=== PATIENT | male | born 1940 | race Caucasian/White ===

== ENCOUNTER → 2016-09-14 | Outpatient (CLI) | payer MEDICARE ==
[~2016-09-14] MED LIST: APIX5TAB PO; ASPI-621 PO; ASPI325T4 PO; DILT300C PO; FURO40TA6 PO; ISOS30TA8 PO; MEGA MEN VITAMIN PO; METF500T4 PO; METO-93 PO; POTA20TA14 PO; RIVA20TA PO; SIMV80TA3 PO; TRIA1CAP3 PO
== END | disposition home or self-care (01) ==
LOC: CFH 14:05 → EDSTATUS 14:30
PROVIDERS: ATTEND Internal Medicine
DX: J43.9 Emphysema, unspecified (principal); I25.10 Atherosclerotic heart disease of native coronary artery without angina pectoris; J47.9 Bronchiectasis, uncomplicated; J98.4 Other disorders of lung; I51.7 Cardiomegaly; R59.1 Generalized enlarged lymph nodes
CPT/HCPCS: 71250

== ENCOUNTER → 2016-09-22 | Outpatient (CLI) | payer MEDICARE | END | disposition home or self-care (01) | LOC: CARD 12:01 | PROVIDERS: ATTEND Internal Medicine | DX: J44.9 Chronic obstructive pulmonary disease, unspecified (principal) | CPT/HCPCS: 94060; 94726; 94729 ==

== ENCOUNTER → 2017-01-12 | Outpatient (CLI) | payer MEDICARE ==
[~2017-01-12] MED LIST changes: +ASPI325T17 PO; -ASPI325T4 PO
== END | disposition home or self-care (01) ==
LOC: CFH 13:00
PROVIDERS: ATTEND Physician Assistant
DX: I08.3 Combined rheumatic disorders of mitral, aortic and tricuspid valves (principal); I10 Essential (primary) hypertension; I48.91 Unspecified atrial fibrillation; E78.5 Hyperlipidemia, unspecified; Z85.828 Personal history of other malignant neoplasm of skin; Z87.891 Personal history of nicotine dependence
CPT/HCPCS: 93306

== ENCOUNTER 2017-12-01 17:30 | Inpatient (IN) | payer MEDICARE ==
[~2017-12-01] VITALS: Ht 182.9 cm; Wt 102.8 kg
[~2017-12-01 17:30] MED LIST changes: -METF500T4 PO; +METF500T5 PO; -SIMV80TA3 PO; +SIMV80TA7 PO
[2017-12-01] MEDS ORDERED: ALBUTEROL/IPRATROPIUM 2.5MG/0.5MG, 3 ML ONE (17:50)
[2017-12-01] MEDS ORDERED: DILT180C59 PO (18:00)
[2017-12-01] MEDS ORDERED: RIVA15TA PO (18:00)
[2017-12-01] MEDS ORDERED: PROP1DRO6 OP (18:00)
[2017-12-01] MEDS ORDERED: PRESSERVISION (18:00)
[2017-12-01] MEDS ORDERED: SODIUM CHLORIDE (18:00)
[2017-12-01] MEDS ORDERED: SODIUM CHLORIDE FLUSH 10ML SYR IVF ONE (18:30)
[2017-12-01 18:35] LABS: BASOPHILS # (AUTO) 0.03 x10^3/uL (0-0.1); BASOPHILS % (AUTO) 0 % (0-1); EOSINOPHILS # (AUTO) 0.01 x10^3/uL (0-0.4); EOSINOPHILS % (AUTO) 0 % (1-7); LYMPHOCYTES # (AUTO) 0.25 x10^3/uL (1-3.4); LYMPHOCYTES % (AUTO) 3 % (22-44); MD NO; MEAN CORPUSCULAR HEMOGLOBIN 28.7 pg (27.5-34.5); MEAN CORPUSCULAR HGB CONC 32.6 g/dL (33.2-36.2); MEAN PLATELET VOLUME 8.6 fL (7.4-10.4); MONOCYTES # (AUTO) 0.34 x10^3/uL (0.2-0.8); MONOCYTES % (AUTO) 4 % (2-9); NEUTROPHILS # (AUTO) 9.25 x10^3/uL (1.8-6.8); NEUTROPHILS % (AUTO) 94 % (42-75); PLATELET COUNT 215 x10^3/uL (130-400); RED BLOOD COUNT 3.62 x10^6/uL (4.38-5.82); RED CELL DISTRIBUTION WIDTH 17.1 % (9.4-14.8)
[2017-12-01 18:40] LABS: INTERNATIONAL NORMALIZED RATIO 1.3 (0.93-1.1); PROTHROMBIN TIME 13.4 Seconds (9.6-11.5)
[2017-12-01 18:42] LABS: ANION GAP 14 mmol/L (5-15); CALCIUM 8.8 mg/dL (8.5-10.1); CHLORIDE 104 mmol/L (98-107)
[2017-12-01 18:47] LABS: ALANINE AMINOTRANSFERASE 12 U/L (12-78); ALKALINE PHOSPHATASE 124 U/L (45-117); BILIRUBIN,TOTAL 0.8 mg/dL (0.2-1.0); CREATININE 4.39 mg/dL (0.7-1.3); TOTAL PROTEIN 7.2 g/dL (6.4-8.2); TROPONIN I < 0.015 ng/mL (0.000-0.045)
[2017-12-01] MEDS ORDERED: SODIUM CHLORIDE 0.9% 1,000ML IVBOLUS ONE (19:30)
[2017-12-01] MEDS ORDERED: SODIUM CHLORIDE FLUSH 10ML SYR IVF PRN (19:30)
[2017-12-01] MEDS ORDERED: ONDANSETRON 2MG/ML, 2ML IVPush PRN (20:00)
[2017-12-01] MEDS ORDERED: ACETAMINOPHEN 325 MG TABLET PO PRN (20:00)
[2017-12-01] MEDS ORDERED: POLYETHYLENE GLYCOL 17 GM PACKET PO PRN (20:00)
[2017-12-01 20:14] LABS: % IRON SATURATION 14 % (20-55); IRON LEVEL 42 mcg/dL (65-175); TOTAL IRON BINDING CAPACITY 292 mcg/dL (250-450)
[2017-12-01 20:53] VITALS: BP 92/61
[2017-12-01] MEDS ORDERED: HEPARIN 5,000 UNITS/ML, 1ML SQ SCH (21:00)
[2017-12-01] MEDS: CEFTRIAXONE 2 GM in SODIUM CHLORIDE 0.9% 50 ML IV SCH (23:31)
[2017-12-01] MEDS: SODIUM CHLORIDE 0.9% 1,000 ML IV SCH (23:31)
[2017-12-02 00:54] VITALS: BP 100/72
[2017-12-02] MEDS: ASPIRIN 81 MG TABLET EC PO SCH (05:20)
[2017-12-02 05:30] LABS: BASOPHILS # (AUTO) 0.02 x10^3/uL (0-0.1); BASOPHILS % (AUTO) 0 % (0-1); EOSINOPHILS # (AUTO) 0.02 x10^3/uL (0-0.4); EOSINOPHILS % (AUTO) 0 % (1-7); LYMPHOCYTES # (AUTO) 0.39 x10^3/uL (1-3.4); LYMPHOCYTES % (AUTO) 5 % (22-44); MD NO; MEAN CORPUSCULAR HEMOGLOBIN 28.9 pg (27.5-34.5); MEAN CORPUSCULAR HGB CONC 32.7 g/dL (33.2-36.2); MEAN CORPUSCULAR VOLUME 88.4 fL (81-97); MEAN PLATELET VOLUME 8.5 fL (7.4-10.4); MONOCYTES % (AUTO) 8 % (2-9); NEUTROPHILS # (AUTO) 6.31 x10^3/uL (1.8-6.8); NEUTROPHILS % (AUTO) 86 % (42-75); PLATELET COUNT 163 x10^3/uL (130-400); RED BLOOD COUNT 3.57 x10^6/uL (4.38-5.82); RED CELL DISTRIBUTION WIDTH 17.3 % (9.4-14.8)
[2017-12-02 05:41] LABS: ALANINE AMINOTRANSFERASE 11 U/L (12-78); ALBUMIN 2.8 g/dL (3.4-5.0); ANION GAP 9 mmol/L (5-15); CALCIUM 8.6 mg/dL (8.5-10.1); CHLORIDE 106 mmol/L (98-107)
[2017-12-02 05:52] LABS: ALKALINE PHOSPHATASE 115 U/L (45-117); BILIRUBIN,TOTAL 0.6 mg/dL (0.2-1.0); CREATININE 4.27 mg/dL (0.7-1.3); TOTAL PROTEIN 6.8 g/dL (6.4-8.2)
[2017-12-02 08:09] VITALS: BP 99/66
[2017-12-02] MEDS: RIVAROXABAN 15 MG TABLET PO SCH (08:13)
[2017-12-02] MEDS: SODIUM CHLORIDE 0.9% 1,000 ML IV SCH (11:14)
[2017-12-02 12:18] LABS: MICROSCOPIC AUTO
[2017-12-02 12:21] LABS: CHLORIDE,URINE RANDOM 45 mmol/L; CULTURE INDICATED? NO; POTASSIUM,URINE RANDOM 65 mmol/L; SODIUM,URINE RANDOM 19 mmol/L
[2017-12-02] MEDS: ALBUMIN HUMAN 25% 50 ML IV SCH ×2 (12:35→19:51)
[2017-12-02 12:48] LABS: CREATININE,URINE RANDOM 85.6 mg/dL
[2017-12-02] MEDS: FUROSEMIDE 40 MG/4 ML IV SCH ×2 (13:29→20:55)
[2017-12-02 14:00] VITALS: BP 93/61
[2017-12-02] MEDS ORDERED: FUROSEMIDE 40 MG/4 ML IV SCH (18:00)
[2017-12-02 20:00] VITALS: BP 99/67
[2017-12-02] MEDS: CEFTRIAXONE 2 GM in SODIUM CHLORIDE 0.9% 50 ML IV SCH (20:55)
[2017-12-03 01:44] VITALS: BP 101/75
[2017-12-03] MEDS: ALBUMIN HUMAN 25% 50 ML IV SCH ×4 (04:17→21:00)
[2017-12-03 05:12] LABS: ANION GAP 9 mmol/L (5-15); CALCIUM 8.7 mg/dL (8.5-10.1); CHLORIDE 106 mmol/L (98-107); CREATININE 4.44 mg/dL (0.7-1.3)
[2017-12-03] MEDS: FUROSEMIDE 40 MG/4 ML IV SCH ×3 (05:26→23:28)
[2017-12-03] MEDS: ASPIRIN 81 MG TABLET EC PO SCH (05:28)
[2017-12-03 07:07] VITALS: BP 103/75
[2017-12-03] MEDS: RIVAROXABAN 15 MG TABLET PO SCH (09:03)
[2017-12-03 13:07] VITALS: BP 91/60
[2017-12-03] MEDS ORDERED: LIDOCAINE 1%, 20ML ONE (20:01)
[2017-12-03 20:29] VITALS: BP 104/81
[2017-12-03] MEDS: CEFTRIAXONE 2 GM in SODIUM CHLORIDE 0.9% 50 ML IV SCH (22:48)
[2017-12-03 23:24] VITALS: BP 98/71
[2017-12-04 00:02] VITALS: BP 104/75
[2017-12-04 03:41] VITALS: BP 99/66
[2017-12-04] MEDS: ALBUMIN HUMAN 25% 50 ML IV SCH ×4 (04:43→20:27)
[2017-12-04 04:48] LABS: BASOPHILS # (AUTO) 0.03 x10^3/uL (0-0.1); BASOPHILS % (AUTO) 0 % (0-1); EOSINOPHILS # (AUTO) 0.19 x10^3/uL (0-0.4); EOSINOPHILS % (AUTO) 2 % (1-7); LYMPHOCYTES # (AUTO) 0.43 x10^3/uL (1-3.4); LYMPHOCYTES % (AUTO) 6 % (22-44); MD NO; MEAN CORPUSCULAR HGB CONC 33.1 g/dL (33.2-36.2); MEAN CORPUSCULAR VOLUME 87.7 fL (81-97); MEAN PLATELET VOLUME 8.8 fL (7.4-10.4); MONOCYTES # (AUTO) 0.53 x10^3/uL (0.2-0.8); MONOCYTES % (AUTO) 7 % (2-9); NEUTROPHILS % (AUTO) 85 % (42-75); PLATELET COUNT 160 x10^3/uL (130-400); RED CELL DISTRIBUTION WIDTH 17.2 % (9.4-14.8)
[2017-12-04 04:59] LABS: ALANINE AMINOTRANSFERASE 8 U/L (12-78); ALBUMIN 3.3 g/dL (3.4-5.0); ANION GAP 10 mmol/L (5-15); CHLORIDE 103 mmol/L (98-107); CREATININE 4.53 mg/dL (0.7-1.3)
[2017-12-04 05:01] LABS: ALKALINE PHOSPHATASE 98 U/L (45-117); BILIRUBIN,TOTAL 0.5 mg/dL (0.2-1.0); TOTAL PROTEIN 6.6 g/dL (6.4-8.2)
[2017-12-04] MEDS: ASPIRIN 81 MG TABLET EC PO SCH (05:49)
[2017-12-04] MEDS: FUROSEMIDE 40 MG/4 ML IV SCH ×3 (05:49→21:32)
[2017-12-04 07:10] VITALS: BP 99/67
[2017-12-04] MEDS: RIVAROXABAN 15 MG TABLET PO SCH (08:43)
[2017-12-04] MEDS: METOPROLOL SUCCINATE 25 MG TAB.ER.24H PO SCH (08:43)
[2017-12-04] MEDS: INSULIN LISPRO 100 UNITS/ML, PEN SQ-INSULIN SCH ×4 (08:43→20:27)
[2017-12-04 12:55] VITALS: BP 100/71
[2017-12-04 20:05] VITALS: BP 106/75
[2017-12-04] MEDS: CEFTRIAXONE 2 GM in SODIUM CHLORIDE 0.9% 50 ML IV SCH (21:06)
[2017-12-05] VITALS (8 sets, daily range): BP systolic 89–106; BP diastolic 61–75
[2017-12-05] MEDS: ALBUMIN HUMAN 25% 50 ML IV SCH ×4 (04:21→22:18)
[2017-12-05 05:26] LABS: BASOPHILS # (AUTO) 0.03 x10^3/uL (0-0.1); BASOPHILS % (AUTO) 0 % (0-1); EOSINOPHILS # (AUTO) 0.33 x10^3/uL (0-0.4); EOSINOPHILS % (AUTO) 4 % (1-7); LYMPHOCYTES # (AUTO) 0.43 x10^3/uL (1-3.4); LYMPHOCYTES % (AUTO) 5 % (22-44); MD NO; MEAN CORPUSCULAR HEMOGLOBIN 29.2 pg (27.5-34.5); MEAN CORPUSCULAR HGB CONC 33.4 g/dL (33.2-36.2); MEAN CORPUSCULAR VOLUME 87.3 fL (81-97); MEAN PLATELET VOLUME 8.6 fL (7.4-10.4); MONOCYTES # (AUTO) 0.57 x10^3/uL (0.2-0.8); MONOCYTES % (AUTO) 7 % (2-9); NEUTROPHILS # (AUTO) 6.58 x10^3/uL (1.8-6.8); NEUTROPHILS % (AUTO) 83 % (42-75); PLATELET COUNT 154 x10^3/uL (130-400); RED BLOOD COUNT 3.45 x10^6/uL (4.38-5.82)
[2017-12-05] MEDS: METOPROLOL SUCCINATE 25 MG TAB.ER.24H PO SCH (05:32)
[2017-12-05] MEDS: ASPIRIN 81 MG TABLET EC PO SCH (05:32)
[2017-12-05] MEDS: FUROSEMIDE 40 MG/4 ML IV SCH ×3 (05:34→23:01)
[2017-12-05 05:36] LABS: CHLORIDE 103 mmol/L (98-107)
[2017-12-05 06:01] LABS: ANION GAP 12 mmol/L (5-15); CALCIUM 8.9 mg/dL (8.5-10.1)
[2017-12-05] MEDS: INSULIN LISPRO 100 UNITS/ML, PEN SQ-INSULIN SCH ×4 (07:00→21:00)
[2017-12-05] MEDS: RIVAROXABAN 15 MG TABLET PO SCH (08:41)
[2017-12-05] MEDS: CEFTRIAXONE 2 GM in SODIUM CHLORIDE 0.9% 50 ML IV SCH (21:34)
[2017-12-06 02:21] VITALS: BP 98/71
[2017-12-06 04:52] LABS: ANION GAP 12 mmol/L (5-15); CALCIUM 8.7 mg/dL (8.5-10.1); CHLORIDE 104 mmol/L (98-107); CREATININE 4.66 mg/dL (0.7-1.3)
[2017-12-06] MEDS: ALBUMIN HUMAN 25% 50 ML IV SCH ×4 (05:16→20:34)
[2017-12-06] MEDS: ASPIRIN 81 MG TABLET EC PO SCH (06:00)
[2017-12-06] MEDS: FUROSEMIDE 40 MG/4 ML IV SCH ×4 (06:00→22:16)
[2017-12-06] MEDS: METOPROLOL SUCCINATE 25 MG TAB.ER.24H PO SCH (06:00)
[2017-12-06] MEDS: INSULIN LISPRO 100 UNITS/ML, PEN SQ-INSULIN SCH ×4 (07:00→21:08)
[2017-12-06 07:28] VITALS: BP 95/65
[2017-12-06] MEDS: RIVAROXABAN 15 MG TABLET PO SCH (09:15)
[2017-12-06 13:08] VITALS: BP 98/63
[2017-12-06 20:50] VITALS: BP 103/79
[2017-12-06] MEDS: CEFTRIAXONE 2 GM in SODIUM CHLORIDE 0.9% 50 ML IV SCH (21:59)
[2017-12-07] MEDS: ALBUMIN HUMAN 25% 50 ML IV SCH ×2 (03:55→09:13)
[2017-12-07 04:00] VITALS: BP 109/77
[2017-12-07] MEDS: FUROSEMIDE 40 MG/4 ML IV SCH (05:10)
[2017-12-07 05:54] LABS: BASOPHILS # (AUTO) 0.03 x10^3/uL (0-0.1); BASOPHILS % (AUTO) 0 % (0-1); EOSINOPHILS # (AUTO) 0.38 x10^3/uL (0-0.4); EOSINOPHILS % (AUTO) 5 % (1-7); LYMPHOCYTES # (AUTO) 0.46 x10^3/uL (1-3.4); LYMPHOCYTES % (AUTO) 6 % (22-44); MD NO; MEAN CORPUSCULAR HEMOGLOBIN 29.4 pg (27.5-34.5); MEAN CORPUSCULAR HGB CONC 33.6 g/dL (33.2-36.2); MEAN CORPUSCULAR VOLUME 87.5 fL (81-97); MEAN PLATELET VOLUME 8.6 fL (7.4-10.4); MONOCYTES # (AUTO) 0.47 x10^3/uL (0.2-0.8); MONOCYTES % (AUTO) 6 % (2-9); NEUTROPHILS # (AUTO) 6.36 x10^3/uL (1.8-6.8); NEUTROPHILS % (AUTO) 83 % (42-75); PLATELET COUNT 175 x10^3/uL (130-400); RED BLOOD COUNT 3.36 x10^6/uL (4.38-5.82); RED CELL DISTRIBUTION WIDTH 17.1 % (9.4-14.8)
[2017-12-07 06:05] LABS: ALBUMIN 3.6 g/dL (3.4-5.0); ANION GAP 14 mmol/L (5-15); CALCIUM 8.9 mg/dL (8.5-10.1); CHLORIDE 102 mmol/L (98-107)
[2017-12-07] MEDS: METOPROLOL SUCCINATE 25 MG TAB.ER.24H PO SCH (06:28)
[2017-12-07] MEDS: ASPIRIN 81 MG TABLET EC PO SCH (06:28)
[2017-12-07] MEDS: INSULIN LISPRO 100 UNITS/ML, PEN SQ-INSULIN SCH ×4 (07:00→20:58)
[2017-12-07 08:01] VITALS: BP 94/53
[2017-12-07] MEDS: RIVAROXABAN 15 MG TABLET PO SCH (09:12)
[2017-12-07 14:31] VITALS: BP 82/52
[2017-12-07] MEDS: FUROSEMIDE 40 MG TABLET PO SCH ×2 (14:31→22:07)
[2017-12-07 19:15] VITALS: BP 95/61
[2017-12-07] MEDS: CEFTRIAXONE 2 GM in SODIUM CHLORIDE 0.9% 50 ML IV SCH (21:30)
[2017-12-08 00:54] VITALS: BP 108/77
[2017-12-08 05:38] VITALS: BP 95/68
[2017-12-08] MEDS: ASPIRIN 81 MG TABLET EC PO SCH (05:40)
[2017-12-08] MEDS: METOPROLOL SUCCINATE 25 MG TAB.ER.24H PO SCH (05:41)
[2017-12-08] MEDS: FUROSEMIDE 40 MG TABLET PO SCH (05:41)
[2017-12-08 06:27] VITALS: BP 95/61
[2017-12-08] MEDS: INSULIN LISPRO 100 UNITS/ML, PEN SQ-INSULIN SCH ×3 (07:00→16:00)
[2017-12-08 08:51] LABS: ALBUMIN 3.3 g/dL (3.4-5.0); ANION GAP 12 mmol/L (5-15); CHLORIDE 102 mmol/L (98-107); CREATININE 4.92 mg/dL (0.7-1.3)
[2017-12-08] MEDS: RIVAROXABAN 15 MG TABLET PO SCH (09:30)
[2017-12-08 12:01] VITALS: BP 94/62
[2017-12-08] MEDS ORDERED: FUROSEMIDE 80 MG TABLET PO SCH (17:00)
[2017-12-08 19:06] VITALS: BP 93/69
[2017-12-08] MEDS ORDERED: EPINEPHRINE SYRINGE 0.1 MG/ML, 10ML ONE (19:38)
[2017-12-08] MEDS ORDERED: AMIODARONE 50 MG/ML, 3ML ONE (19:38)
[2017-12-08] MEDS ORDERED: CODE BLUE RESPONSE XX ONE (19:38)
== END 2017-12-09 01:01 | disposition expired | DRG 682 ==
LOC: SUATTDRO 19:43 → ED 20:00 → EDIP 20:01 → 5SO 20:54
PROVIDERS: ADMIT Hospitalist; ATTEND Hospitalist
PROC: 0BH17EZ Insertion of Endotracheal Airway into Trachea, Via Natural or Artificial Opening (ICD-10-PCS; principal; 2017-12-01)
PROC: 5A12012 Performance of Cardiac Output, Single, Manual (ICD-10-PCS; 2017-12-01)
PROC: 0W9G3ZZ Drainage of Peritoneal Cavity, Percutaneous Approach (ICD-10-PCS; 2017-12-03)
DX: N17.0 Acute kidney failure with tubular necrosis (principal); J96.21 Acute and chronic respiratory failure with hypoxia; E43 Unspecified severe protein-calorie malnutrition; J18.9 Pneumonia, unspecified organism; L03.116 Cellulitis of left lower limb; L03.115 Cellulitis of right lower limb; D68.59 Other primary thrombophilia; E87.2 Acidosis; I13.0 Hypertensive heart and chronic kidney disease with heart failure and stage 1 through stage 4 chronic kidney disease, or unspecified chronic kidney disease; I50.42 Chronic combined systolic (congestive) and diastolic (congestive) heart failure; R18.8 Other ascites; J44.0 Chronic obstructive pulmonary disease with (acute) lower respiratory infection; E66.9 Obesity, unspecified; I95.9 Hypotension, unspecified; D63.1 Anemia in chronic kidney disease; E11.22 Type 2 diabetes mellitus with diabetic chronic kidney disease; E78.5 Hyperlipidemia, unspecified; I27.29 Other secondary pulmonary hypertension; I35.0 Nonrheumatic aortic (valve) stenosis; I48.2 Chronic atrial fibrillation; J84.10 Pulmonary fibrosis, unspecified; N18.3 Chronic kidney disease, stage 3 (moderate); I25.10 Atherosclerotic heart disease of native coronary artery without angina pectoris; Z68.30 Body mass index [BMI] 30.0-30.9, adult; I25.2 Old myocardial infarction; Z79.01 Long term (current) use of anticoagulants; Z87.01 Personal history of pneumonia (recurrent); Z87.891 Personal history of nicotine dependence; Z95.5 Presence of coronary angioplasty implant and graft; Z99.81 Dependence on supplemental oxygen
CPT/HCPCS: 36415; 49083; 71045; 76770; 80048; 80053; 80069; 81001; 82042; 82330; 82436; 82550; 82570; 82962; 83540; 83550; 83615; 83735; 83880; 83970; 84100; 84133; 84156; 84157; 84300; 84443; 84484; 85025; 85610; 85730; 87040; 87070; 87205; 92950; 93005; 93306; 96360; J0696; J1940; J3490; P9047; J0282; J1815; J7030